=== PATIENT | male | born 1985 | race Two or more races ===

== ENCOUNTER 2020-04-30 23:16 | Emergency (ER) | payer SELFPAY ==
[~2020-04-30] VITALS: Ht 172.7 cm; Wt 90.9 kg
[2020-04-30] MEDS ORDERED: IV NORMAL SALINE 1,000ML 1,000 ML IV SCH (23:40)
[2020-04-30] MEDS ORDERED: AZITHROMYCIN 250 MG TABLET. PO ONE (23:45)
[2020-04-30] MEDS ORDERED: cefTRIAXone SODIUM 1 GM VIAL ONE (23:51)
[2020-04-30] MEDS ORDERED: IV NORMAL SALINE 50ML 50 ML ONE (23:51)
[2020-05-01] MEDS ORDERED: ACETAMINOPHEN 325 MG TABLET PO ONE
--- NOTE | 2020-05-01 00:23 | RAD ---
AP chest x-ray HISTORY: Shortness of breath. FINDINGS: Borderline cardiomegaly although the heart may be magnified by the AP portable technique rather than truly enlarged. Mediastinal silhouette is normal. The mid inferior lung zones demonstrate indistinct heterogeneous groundglass type densities, no interstitial thickening evident, this may represent mild alveolar pulmonary edema including noncardiogenic edema, or a diffuse infectious or inflammatory process including atypical viral infection. Bones are unremarkable. IMPRESSION: Indistinct groundglass opacities at the mid to inferior lung zones as described above. Electronically signed by: J Carlos Shields MD (05/01/2020 12:20 AM) [facility]
[2020-05-01 00:28] LABS: CALCIUM 8.2 mg/dL (8.5-10.1); GFR 84.5; POTASSIUM 3.9 mmol/L (3.5-5.1)
--- NOTE | 2020-05-01 00:33 | EKG ---
[address] [address] Test Date: 2020-04-30 Test Time: 23:54:37 Pat Name: DAMARIS CRUZ Department: Room: Gender: M [place]ounds[place]: : 1985 Requested By: ARRON RIBEIRO Order Number: [id number] Reading MD: Measurements Intervals [place] Rate: 94 P: 29 IN: 144 QRS: 5 QRSD: 82 T: 0 QT: 322 QTc: 403 Interpretive Statements SINUS RHYTHM LEFT ATRIAL ABNORMALITY INCOMPLETE RIGHT BUNDLE BRANCH BLOCK ABNORMAL ECG RI6.02 No previous ECG available for comparison
--- NOTE | 2020-05-01 00:35 | PHYS DOC ---
Past History Past Medical History: No Pertinent History Past Surgical History: No Surgical History Alcohol Use: Heavy General Adult EDM: Chief Complaint: FEVER HPI: HPI: 34 yo M, who denies any significant past medical history (has no pmd, takes no routine medications), presents to the ED with complaints of acute on chronic worsening shortness of breath, fever and cough, was diagnosed with COVID 5 days ago at a local testing site, symptoms started 7 days ago. Occasionally smokes tobacco, no formally diagnosed lung disease or cardiac disease. Has never been hospitalized for any reason. Came to the ED because he couldn't sleep. ROS: Denies associated chest pain pressure heaviness or tightness, syncope, headache, neck stiffness, diaphoresis, nausea, vomiting, tish pain, back pain, dysuria, hematuria, myalgias, rash, hemoptysis or unilateral leg swelling. Review of Systems: Review of Systems: Eyes: Denies change in visual acuity HENT: Denies nasal congestion or sore throat Cardiovascular: Denies chest pain or edema GI: Denies abdominal pain, nausea, vomiting, : Denies dysuria Musculoskeletal: Denies back pain or joint pain Integument: Denies rash Neurologic: Denies headache, focal weakness or sensory changes Lymphatic: Denies swollen glands Psychiatric: Denies depression or anxiety Heart Score: Risk Factors: Risk Factors: DM, Current or recent (<one month) smoker, HTN, HLP, family history of CAD, obesity. Risk Scores: Score 0 - 3: 2.5% MACE over next 6 weeks - Discharge Home Score 4 - 6: 20.3% MACE over next 6 weeks - Admit for Clinical Observation Score 7 - 10: 72.7% MACE over next 6 weeks - Early Invasive Strategies Patient denies any active chest pain Current Medications: Current Meds: Current Medications Medications (Trade) Dose Ordered Sig/Kody Start Time Stop Time Status Last Admin Dose Admin Acetaminophen (Tylenol) 650 mg 1X ONCE 05/01/20 00:00 05/01/20 00:16 DC 05/01/20 00:00 650 MG Azithromycin (Zithromax) 500 mg 1X ONCE 04/30/20 23:45 05/01/20 00:16 DC 05/01/20 00:00 500 MG Ceftriaxone Sodium 1 gm/ Sodium Chloride 50 ml @ 100 mls/hr 1X ONCE 04/30/20 23:45 05/01/20 00:16 DC 04/30/20 23:59 100 MLS/HR Ceftriaxone Sodium (Rocephin) 1 gm STK-MED ONCE 04/30/20 23:51 04/30/20 23:51 DC Sodium Chloride 50 ml @ As Directed STK-MED ONCE 04/30/20 23:51 04/30/20 23:51 DC Allergies: Allergies: Allergies Coded Allergies Type Severity Reaction Last Updated Verified No Known Drug Allergies 04/30/20 No Physical Exam: PE: Constitutional: Well developed, well nourished, no acute distress, non-toxic appearance. [] HENT: Normocephalic, atraumatic, oropharynx moist, Eyes: EOMI, conjunctiva normal, no discharge. [] Neck: Normal range of motion, no tenderness, supple, no stridor. [] Cardiovascular:Heart rate regular rhythm, no murmur [] Lungs & Thorax: 95% on room air, speaking in full sentences-very mild tachypnea with prolonged speech, no tachypnea or increased work of breathing at rest, bilateral equal chest rise, no sternal or subcostal retractions Abdomen: Bowel sounds normal, soft, no tenderness, no masses, no pulsatile masses. [] Skin: Warm, dry, no erythema, no rash. [] Back: No tenderness, no CVA tenderness. [] Extremities: No tenderness, no cyanosis, no clubbing, ROM intact, no edema Neurologic: Alert and oriented X 3, normal motor function, normal sensory function, no focal deficits noted. [] Psychologic: Affect normal, judgement normal, mood normal. [] Current Patient Data: Vital Signs: Vital Signs Date Time Temp Pulse Resp B/P (MAP) Pulse Ox O2 Delivery O2 Flow Rate FiO2 05/01/20 00:13 101.1 91 18 136/78 (97) 95 Room Air EKG: EKG: Sinus rhythm at 94 bpm, no axis deviation, normal intervals, no obvious TWIs/STEs/STDs Radiology/Procedures: Radiology/Procedures: IMAGING REPORT Signed PATIENT: MARY CRUZ ACCOUNT: [id number] : 1985 LOCATION: ER AGE: 34 SEX: M EXAM STATUS: PRE ER ORD. PHYSICIAN: ARRON RIBEIRO DO REASON: soa PROCEDURE: PORTABLE CHEST 1V AP chest x-ray HISTORY: Shortness of breath. FINDINGS: Borderline cardiomegaly although the heart may be magnified by the AP portable technique rather than truly enlarged. Mediastinal silhouette is normal. The mid inferior lung zones demonstrate indistinct heterogeneous groundglass type densities, no interstitial thickening evident, this may represent mild alveolar pulmonary edema including noncardiogenic edema, or a diffuse infectious or inflammatory process including atypical viral infection. Bones are unremarkable. IMPRESSION: Indistinct groundglass opacities at the mid to inferior lung zones as described above. Electronically signed by: Fran Shields MD (05/01/2020 12:20 AM) [facility] DICTATED AND SIGNED BY: FRAN SHIELDS MD DATE: 05/01/2019 CC: ARRON RIBEIRO DO ~ IMAGING REPORT Signed PATIENT: MARY CRUZ ACCOUNT: [id number] : 1985 LOCATION: ER AGE: 34 SEX: M EXAM STATUS: REG ER ORD. PHYSICIAN: ARRON RIBEIRO DO REASON: soa r/o pe, OMNI 350, 100ml PROCEDURE: CT ANGIOGRAPHY CHEST CT angiography chest with contrast PQRS statement: CT scans at this facility use dose reduction including either automated exposure control, iterative reconstructions, and /or weight based radiation dosing via mA and kV modification when appropriate to reduce radiation dose to as low as reasonably achievable. Contrast: 100 mL Omnipaque 350 intravenous contrast and 3-D MIP reconstructions of the pulmonary arteries were acquired. HISTORY: Shortness of breath. FINDINGS: Heart size borderline enlarged. Aorta and esophagus are unremarkable. Decreased contrast density within the peripheral lobar pulmonary arteries decreasing sensitivity to detect small peripheral lobar emboli, in light of this no pulmonary artery emboli are evident. Borderline enlarged lymphadenopathy which are axis diameters measuring up to 1 cm in size. No pleural effusions. No pneumothorax. There are lower lobe greater than upper lobe somewhat peripheral preferential heterogeneous groundglass opacities and areas of consolidation. No cavitary lesion evident. Bones are unremarkable. IMPRESSION: 1. No pulmonary artery emboli evident. See above 2. Extensive lower lobe greater than upper lobe somewhat peripheral distributed groundglass opacities and consolidation most likely representing an infectious or inflammatory process, including atypical viral infection. Follow-up CT imaging in 3 months is advised to document that this resolves. Electronically signed by: Fran Shields MD (05/01/2020 3:18 AM) [facility] [place] DICTATED AND SIGNED BY: FRAN SHIELDS MD DATE: 05/01/20 0318 CC: PCP,NO; ARRON RIBEIRO DO ~ Course & Med Decision Making: Course & Med Decision Making Pertinent Labs and Imaging studies reviewed. (See chart for details) SIRS 2/2 covid-19 not requiring any respiratory or oxygen support. Patient with unremarkable d-dimer and negative troponin, chest x-ray consistent with COVID. Patient is febrile, no leukocytosis, no lactic acidosis. CTA of the chest shows extensive lower lobe more so than upper lobe groundglass opacities and consolidation. Pt speaking in full sentences, requiring no respiratory support. Will discharge patient prescribe azithromycin, albuterol and Flovent. Patient's bought a pulse oximeter and patient was encouraged to check his pulse ox qid and return if he dropped below 90%. Was also given strict ED return precautions for increased work of breathing, retractions, confusion, stroke symptoms, chest pain, syncope or dehydration. Encouraged PMD follow-up in 48 hours. Life-threatening processes were considered, low suspicion given hx/pe/ed workup. All of patient's questions were answered and he was stable at time of discharge. Differential includes acute myocardial infarction, aortic dissection, congestive heart failure, esophageal injury including rupture, surgical abdomen, arrhythmia, cardiomyopathy, myocarditis, pericarditis, peptic ulcer disease, pneumomediastinum, pneumonia, pneumothorax, pulmonary embolus, unstable angina, rib fracture, contusion, pericardial tamponade or effusion, pulmonary contusion, cva, tia I spoken with the patient and her caregivers. I explained the patient's condition, diagnoses and treatment plan based on the information available to me at this time. I have answered the patient and her caregiver's questions and ad dressed any concerns. The patient and her caregivers have a good understanding of patient's diagnosis, condition and treatment plan as can be expected at this point. Vital signs have been stable. Patient's condition is stable and appropriate for discharge from the emergency department. Patient will pursue further outpatient evaluation with primary care physician or other designated or consulting physician as outlined in the discharge instructions. The patient and/or caregivers are agreeable to this plan of care and follow-up instructions have been explained in detail. The patient and/or caregivers have received these instructions in written form and have expressed an understanding of the discharge instructions. The patient and/or caregivers are aware that any significant change of condition or worsening of symptoms should prompt immediate return to this or the closest emergency department or call to 911. Davin Disclaimer: Dragsathya Disclaimer: This electronic medical record was generated, in whole or in part, using a voice recognition dictation system. Departure Departure: Impression: Primary Impression: COVID-19 Additional Impressions: Pneumonia Shortness of breath Disposition: HOME/RESIDENCE PRIOR TO ADM Condition: STABLE Referrals: MARKUS NICHOLSON MD Patient Instructions: Shortness of Breath Scripts Fluticasone Propionate (FLOVENT 110MCG HFA) 12 Gm Aer.w.adap 2 PUFF IH BID for DAILY for 14 Days, #1 INHALER Prov: ARRON RIBEIRO DO 05/01/20 Albuterol Sulfate (VENTOLIN HFA INHALER) 18 Gm Hfa.aer.ad 1 PUFF IH PRN Q4HRS PRN for SHORTNESS OF BREATH MDD 1 PUFF EVERY 2 HOURS for 7 Days, INHALER 0 Refills Prov: ARRON RIBEIRO DO 05/01/20 Azithromycin (AZITHROMYCIN TABLET) 250 Mg Tablet 250 MG PO DAILY for ANTI-BIOTIC for 4 Days, #4 TAB 0 Refills Prov: ARRON RIBEIRO DO 05/01/20 Justification of Admission: Justification of Admission: Justification of Admission Dx: N/A ARRNO RIBEIRO DO May 01, 2020 00:35
[2020-05-01 00:36] LABS: BASO % 0 % (0-3); EOS % 0 % (0-3); HEMOGLOBIN 14.4 g/dL (13.0-17.5); LYMPH % 22 % (24-48); MEAN CORPUSCULAR HEMOGLOBIN 30 pg (25-35); MEAN CORPUSCULAR HGB CONC 34 g/dL (31-37); MEAN CORPUSCULAR VOLUME 90 fL (79-100); MONO # 0.5 x10^3/uL (0.0-1.1); MONO % 11 % (0-9); NEUT % 66 % (31-73); PLATELET COUNT 160 x10^3/uL (140-400); RED BLOOD COUNT 4.78 x10^6/uL (4.30-5.70); RED CELL DISTRIBUTION WIDTH 13.4 % (11.5-14.5); WHITE BLOOD COUNT 4.5 x10^3/uL (4.0-11.0)
[2020-05-01 00:41] LABS: ALBUMIN 3.4 g/dL (3.4-5.0); ALBUMIN/GLOBULIN RATIO 0.8 (1.0-1.7); TOTAL BILIRUBIN 0.5 mg/dL (0.2-1.0); TOTAL PROTEIN 7.7 g/dL (6.4-8.2)
[2020-05-01] MEDS ORDERED: IOHEXOL 350 MG/ML 100 ML VIAL. IV ONE (01:45)
[2020-05-01] MEDS ORDERED: CONTRAST GIVEN. MC PRN (02:00)
--- NOTE | 2020-05-01 03:21 | RAD ---
CT angiography chest with contrast PQRS statement: CT scans at this facility use dose reduction including either automated exposure control, iterative reconstructions, and /or weight based radiation dosing via mA and kV modification when appropriate to reduce radiation dose to as low as reasonably achievable. Contrast: 100 mL Omnipaque 350 intravenous contrast and 3-D MIP reconstructions of the pulmonary arteries were acquired. HISTORY: Shortness of breath. FINDINGS: Heart size borderline enlarged. Aorta and esophagus are unremarkable. Decreased contrast density within the peripheral lobar pulmonary arteries decreasing sensitivity to detect small peripheral lobar emboli, in light of this no pulmonary artery emboli are evident. Borderline enlarged lymphadenopathy which are axis diameters measuring up to 1 cm in size. No pleural effusions. No pneumothorax. There are lower lobe greater than upper lobe somewhat peripheral preferential heterogeneous groundglass opacities and areas of consolidation. No cavitary lesion evident. Bones are unremarkable. IMPRESSION: 1. No pulmonary artery emboli evident. See above 2. Extensive lower lobe greater than upper lobe somewhat peripheral distributed groundglass opacities and consolidation most likely representing an infectious or inflammatory process, including atypical viral infection. Follow-up CT imaging in 3 months is advised to document that this resolves. Electronically signed by: J Carlos Shields MD (05/01/2020 3:18 AM) [facility]
[2020-05-01 03:30] VITALS: BP 125/76
[2020-05-01] MEDS ORDERED: FLUT12AE IH (04:07)
[2020-05-01] MEDS ORDERED: AZIT250T6 PO (04:07)
[2020-05-01] MEDS ORDERED: ALBU2.5V8 IH (04:07)
== END 2020-05-01 04:10 | disposition home or self-care (01) ==
LOC: ER 23:16
DX: U07.1 COVID-19 (principal); J12.89 Other viral pneumonia; F10.20 Alcohol dependence, uncomplicated; F17.200 Nicotine dependence, unspecified, uncomplicated; Y90.9 Presence of alcohol in blood, level not specified
CPT/HCPCS: 36415; 71045; 71275; 80053; 83605; 84484; 85025; 85379; 87040; 93005; 96365; 99285; J0456; J0696; J7030; Q9967